=== PATIENT | female | born 1965 | race Caucasian/White ===

== ENCOUNTER 2022-08-04 15:16 | Emergency (ER) | payer MEDICAID ==
[~2022-08-04] VITALS: Ht 165.1 cm; Wt 71.2 kg
[2022-08-04 15:17] VITALS: BP_SYST 139
--- NOTE | 2022-08-04 15:17 | NUR ---
BROUGHT BACK TO BED #4 AND TRIAGED. REPORT GIVEN TO JAZIEL
--- NOTE | 2022-08-04 15:20 | NUR ---
PATIENT BROUGHT IN FROM WORK COMPLAINING OF SUBSTERNAL CHEST PAIN RADIATING TO LEFT SHOULDER WITH NAUSEA AND MILD DYSPNEA SINCE 1500 TODAY WHILE SITTING AT HER DESK AT WORK. PATIENT REPORTS TALKING LASIX AND STILL HAVING EDEMA. HX OF CVA, TIA, DVT, HTN, AND HLD. PAIN 07/30. NO OTHER COMPLAINTS/INJURIES PER PATIENT OR NOTED.
--- NOTE | 2022-08-04 15:24 | NUR ---
Ashleigh guo in ED - 08/04/22 at 1528 by [email or web address] EKG performed at by LIZ RUELAS. Physician given copy of EKG for review.
--- NOTE | 2022-08-04 15:24 | NUR ---
EKG performed at by LIZ RUELAS. Physician given copy of EKG for review.
--- NOTE | 2022-08-04 15:31 | NUR ---
ER at bedside examining patient.
[2022-08-04] MEDS ORDERED: ASPIRIN 325 MG TABLET PO ONE (15:45)
--- NOTE | 2022-08-04 16:00 | NUR ---
Blood for labwork drawn from INSPECTOR [employer]ACH[employer] CUT GLASS. Patient tolerated WELL
[2022-08-04 16:30] LABS: ANION GAP 9 (5-15); CALCIUM 8.7 mg/dL (8.4-11.0); CHLORIDE 103 mmol/L (98-107); CREATININE 0.65 mg/dL (0.55-1.30); GFR AFRICAN AMERICAN 122 mL/min (>90); GLUCOSE 97 mg/dL (70-99); UREA NITROGEN, BLOOD 17 mg/dL (8-21)
[2022-08-04] MEDS ORDERED: ACETAMINOPHEN 500 MG TABLET PO ONE (16:30)
[2022-08-04 16:37] LABS: ALANINE AMINOTRANSFERASE 69 U/L (12-78); ALBUMIN 3.7 g/dL (3.4-4.8); ASPARTATE AMINOTRANSFERASE 63 U/L (10-37); TOTAL BILIRUBIN 0.3 mg/dL (0.0-1.0)
[2022-08-04 16:38] LABS: ALCOHOL, BLOOD < 3 mg/dL (<10)
[2022-08-04 16:51] LABS: BASOPHILS % (AUTO) 0.7 % (0.0-2.0); EOSINOPHILS # (AUTO) 0.2 K/uL (0.0-0.4); EOSINOPHILS % (AUTO) 2.9 % (0.0-4.0); HEMATOCRIT 37.8 % (36-48); HEMOGLOBIN 12.7 g/dL (12.0-16.0); LYMPHOCYTES # (AUTO) 2.1 K/uL (1.0-5.5); LYMPHOCYTES % (AUTO) 31.7 % (20.5-51.5); MEAN CORPUSCULAR HEMOGLOBIN 32 pg (27-31); MEAN CORPUSCULAR HGB CONC 34 % (32-36); MEAN CORPUSCULAR VOLUME 94 fL (79.0-98.0); MONOCYTES # (AUTO) 0.7 K/uL (0.0-1.0); MONOCYTES % (AUTO) 10.1 % (1.7-9.3); NEUTROPHILS # (AUTO) 3.5 K/uL (1.8-7.7); NEUTROPHILS % (AUTO) 54.6 % (40.0-70.0); PLATELET COUNT (AUTO) 206 K/uL (130-430); RED BLOOD CELL COUNT(AUTO) 4.02 MIL/uL (4.2-6.2); WHITE BLOOD COUNT (AUTO) 6.5 K/uL (4.8-10.8)
[2022-08-04] MEDS ORDERED: LIDOCAINE PATCH 5% 1 EA TP ONE (18:15)
--- NOTE | 2022-08-04 18:38 | NUR ---
PATIENT BLADDER SCANNED WITH 438ML OF URINE IN BLADDER. NOTIFIED
[2022-08-04] MEDS ORDERED: KETOROLAC TROMETHAMINE 30 MG VIAL IM ONE (19:00)
--- NOTE | 2022-08-04 19:00 | NUR ---
# 16 FR Hdz catheter with use of sterile technique. Immediate return of 420 cc yellow urine noted. Bedside drainage bag placed below level of bladder. Urine sample collected and sent to lab. Pt tolerated procedure well with relief. Patient unable to relieve bladder.
--- NOTE | 2022-08-04 19:13 | NUR ---
PATIENT IS UPSET THAT SHE IS "ONLY GETTING TORADOL." PATIENT STATES THAT SHE NEEDS SOMETHING STRONGER. WHEN ASKED WHAT MEDICATION USUALLY WORKS FOR HER PAIN , PATIENT STATES A MEDICATION THAT STARTS WITH A D. "USUALLY DEMORAL OR DIULADID" MD NOTIFIED OF PATIENT'S REQUEST. PAIN 11/29
[2022-08-04 19:14] LABS: BILIRUBIN,URINE NEGATIVE (NEGATIVE); CLARITY/URINE CLEAR (CLEAR); COLOR,URINE YELLOW (YELLOW); GLUCOSE,URINE NEGATIVE (NEGATIVE); KETONES,URINE TRACE (NEGATIVE); LEUKOCYTE ESTERASE ,URINE NEGATIVE (NEGATIVE); NITRITE, URINE NEGATIVE (NEGATIVE); PROTEIN URINE NEGATIVE (NEGATIVE); UROBILINOGEN,URINE 0.2 (0.2-1.0)
[2022-08-04 19:24] LABS: BLOOD, URINE TRACE (NEGATIVE)
[2022-08-04] MEDS ORDERED: VIS25 PO (19:27)
[2022-08-04] MEDS ORDERED: IBUP-1969 PO (19:27)
[2022-08-04] MEDS ORDERED: ACET-2634 PO (19:27)
[2022-08-04] MEDS ORDERED: LIDO1ADH77 TP (19:27)
[2022-08-04 19:37] LABS: BARBITURATE, URINE NEGATIVE (NEG <=200); BENZODIAZEPINE, URINE NEGATIVE (NEG <=150); CANNABINOID, URINE NEGATIVE (NEG <=50); COCAINE, URINE NEGATIVE (NEG <=150); METHAMPHETAMINES SCREEN,URINE NEGATIVE (NEG <=500); OPIATE, URINE NEGATIVE (NEG <=100); PHENCYCLIDINE SCREEN,URINE NEGATIVE (NEG <=25); URINE AMPHETAMINE NEGATIVE (NEG <=500); URINE METHADONE NEGATIVE (NEG <=200); URINE OXYCODONE SCREEN NEGATIVE (NEG <=100); URINE PROPOXYPHENE SCREEN NEGATIVE (NEG <=300)
[2022-08-04 19:38] LABS: UR TRICYCLIC ANTIDEPRESSANTS NEGATIVE (NEG <=300)
--- NOTE | 2022-08-04 19:40 | NUR ---
ASSUMED PATIENT CARE AAOX4 SPEECH CLEAR AND COHERENT, MOVE ALL EXTREMITIES, ON [employer] ALL RESULT BACKEDP MADE AWARE AWAITING FOR REASSESMENT FOR DISPOSITION.
[2022-08-04 19:41] LABS: BACTERIA,URINE RARE /HPF (None Seen); MUCUS,URINE None Seen /LPF (None Seen); RBC,URINE 0-3 /HPF (0-3); WBC,URINE 0-3 /HPF (0-3)
--- NOTE | 2022-08-04 20:20 | NUR ---
X-RAY IN ROOM IN PROGRESS.
--- NOTE | 2022-08-04 20:22 | NUR ---
PATIENT REQUESTED TO TALK TO CHARGE NURSE REGARDING HER PAIN.
--- NOTE | 2022-08-04 20:24 | NUR ---
MD NOTIFIED PATIENT IS 11/29 PAIN. REQUESTING PAIN MEDICATION. AWAITING NEW ORDERS.
[2022-08-04] MEDS ORDERED: HYDROmorphone 1 MG/ML INJ. CARTRIDGE IVP ONE (20:45)
--- NOTE | 2022-08-04 21:32 | NUR ---
PATIENT VERBALIZES THAT PAIN DOWN TO 7/10.
--- NOTE | 2022-08-04 23:08 | NUR ---
ALL RESULT BACK EDP REASSESS PATIENT AND D/C HOME, PATIENT REFUSES TO LEAVE STATING DOES NOT FEEL GOOD, EDP AND CHARGE NURSE AWARE.
--- NOTE | 2022-08-04 23:10 | NUR ---
PATIENT REFUSING TO BE DISCHARGED. RACKING TECHNICIAN AMAN NOTIFIED.
--- NOTE | 2022-08-04 23:28 | NUR ---
Patient bladder scanned [address] Frank made aware. OK for f/c
--- NOTE | 2022-08-04 23:30 | NUR ---
Spoke with patient Spoke with patient regarding DC orders. Patient still complaining of abdominal pain rated at 9/10. Patient is visibly upset and was crying the whole time. She stated that the dilaudid given to her earlier only managed to lower her pain level down to 6. ER MD updated.
--- NOTE | 2022-08-05 01:04 | NUR ---
PATIENT COMPLAINING OF PAIN 11/29. DR. MELGAR NOTIFIED.
--- NOTE | 2022-08-05 01:12 | NUR ---
INFORMED DR. MELGAR PATIENT CRYING IN BED REQUESTING MEDICATION. DR MELGAR PLACED ORDER FOR NORCO PO. ATTEMPTED TO MEDICATE PATIENT WITH MEDICATION. PATIENT IS REFUSING MEDICATIONS. PATIENT STATES " I AM A 10/10 PAIN, NORCO IS GOING TO DO NOTHING FOR MY PAIN . I NEED SOMETHING THAT WILL TAKE THE EDGE OFF." TRIED TO RE EDUCATE PATIENT ON MEDICATION BUT PATIENT IS STILL REFUSING MEDICATION. MD NOTIFIED. MEDICATION WASTED.
[2022-08-05] MEDS ORDERED: HYDROcodone/ACETAMIN 5-325 MG TAB (NORCO/ VICODIN) PO ONE (01:15)
[2022-08-05] MEDS ORDERED: HYDROmorphone 1 MG/ML INJ. CARTRIDGE IVP ONE (01:30)
--- NOTE | 2022-08-05 02:52 | NUR ---
H/L TO LEFT HAND 324 GAUGE.
--- NOTE | 2022-08-05 05:04 | NUR ---
PATIENT REMAINS IN BED AWAITING FOR ADMISSION AN BED ASSIGNMENT.
[2022-08-05] MEDS ORDERED: POLY17PO4 PO (05:31)
[2022-08-05] MEDS ORDERED: DOCU-144 PO (05:31)
--- NOTE | 2022-08-05 05:50 | NUR ---
EDP REASSESS PATIENT AND D/C AFTER TALKING TO POTENTIAL ADMITTING PHYSICIAN.
[2022-08-05 05:51] VITALS: BP_SYST 128
== END 2022-08-05 05:50 | disposition home or self-care (01) ==
LOC: SED 15:16
DX: R07.89 Other chest pain (principal); N39.0 Urinary tract infection, site not specified; R14.0 Abdominal distension (gaseous); R33.9 Retention of urine, unspecified; M25.512 Pain in left shoulder; R11.0 Nausea; E78.5 Hyperlipidemia, unspecified; I10 Essential (primary) hypertension; Z88.6 Allergy status to analgesic agent; Z79.899 Other long term (current) drug therapy
CPT/HCPCS: 99285; 74176; 96374; 71045; 96375; 80307; 80053; 83880; 83690; 85025; 84484; 36415; 93005; 74018; 76376; 81000; 96376; G0482; J1885; J1170 ×2